=== PATIENT | male | born 1960 | race Caucasian/White ===

== ENCOUNTER 2017-06-08 07:27 | Inpatient (IN) | payer MEDICAID, OTHER ==
[2017-06-08] VITALS (15 sets, daily range): BP systolic 129–191; BP diastolic 71–116
[~2017-06-08] VITALS: Ht 188 cm; Wt 90.1 kg
[2017-06-08] MEDS ORDERED: nitroGLYCERIN 0.4mg SUBLingual tab SL PRN ×3 (07:45→10:25)
[2017-06-08] MEDS ORDERED: BUPIVAcaine 0.5% inj/PF 30 ml vial IJ ONE (08:05)
[2017-06-08 08:18] LABS: BASOPHILS % (AUTO) 0.2 % (0-1); EOSINOPHILS # (AUTO) 0.1 X10'3 (0-0.9); HEMATOCRIT 40.3 % (42.0-52.0); HEMOGLOBIN 13.7 g/dl (14.0-17.9); LYMPHOCYTES # (AUTO) 1.1 X10'3 (1.1-4.8); LYMPHOCYTES % (AUTO) 17.5 % (21-51); MEAN CORPUSCULAR HEMOGLOBIN 33.1 PG (27.0-31.0); MEAN CORPUSCULAR HGB CONC 34.1 % (33.0-36.5); MEAN CORPUSCULAR VOLUME 97.3 FL (78-98); MEAN PLATELET VOLUME 7.7 FL (7.4-10.4); MONOCYTES # (AUTO) 0.6 X10'3 (0-0.9); MONOCYTES % (AUTO) 8.9 % (2-12); NEUTROPHILS # (AUTO) 4.4 X10'3 (1.8-7.7); NEUTROPHILS % (AUTO) 71.4 % (42-75); PLATELET COUNT 310 X10'3 (140-440); RED BLOOD COUNT 4.14 X10'6 (4.70-6.10); RED CELL DISTRIBUTION WIDTH 13.2 % (11.5-14.5); WHITE BLOOD COUNT 6.2 X10'3 (4.5-11.0)
[2017-06-08 08:26] LABS: ALBUMIN 3.6 G/DL (3.4-5.0); ANION GAP 10 (8-16); BLOOD UREA NITROGEN 12 MG/DL (7-18); BUN/CREATININE RATIO 9.7 (5.4-32.0); CALCIUM 8.2 MG/DL (8.5-10.1); CHLORIDE 104 MMOL/L (99-107); CREATININE 1.24 MG/DL (0.60-1.10); GLUCOSE 109 MG/DL (70-104); POTASSIUM 3.9 MMOL/L (3.5-5.1); SODIUM 140 MMOL/L (135-145); TOTAL CARBON DIOXIDE 25.6 MMOL/L (24-32); eGFR 60 ML/MIN
[2017-06-08 08:36] LABS: PARTIAL THROMBOPLASTIN TIME 29 SECONDS (22-32); PROTHROMBIN TIME 10.8 SECONDS (9.0-12.0)
[2017-06-08 08:43] LABS: ALANINE AMINOTRANSFERASE 47 U/L (12-78); ALBUMIN/GLOBULIN RATIO 0.9 (1.1-1.5); ALKALINE PHOSPHATASE 54 IU/L (46-116); ASPARTATE AMINO TRANSFERASE 35 U/L (10-37); BILIRUBIN,TOTAL 0.4 MG/DL (0.1-1.0); TOTAL PROTEIN 7.7 G/DL (6.4-8.2)
[2017-06-08] MEDS ORDERED: potassium Cl 40MEQ/NS 500ml 500 ML IV PRN ×2 (10:20)
[2017-06-08] MEDS ORDERED: magnesium Cl slow-release 64mg tablet PO PRN (10:20)
[2017-06-08] MEDS ORDERED: magnesium 4gm in 100ml NS 100 ML IV PRN (10:20)
[2017-06-08] MEDS ORDERED: ondansetron/PF 4mg/2ml inj IV PRN (10:20)
[2017-06-08] MEDS ORDERED: HYDROcodone/acetaminophen 5mg/325mg tablet PO PRN (10:20)
[2017-06-08] MEDS ORDERED: acetaminophen 325mg tablet PO PRN (10:20)
[2017-06-08] MEDS ORDERED: magnesium hydroxide 30ml (MOM) UD suspension PO PRN (10:20)
[2017-06-08] MEDS ORDERED: potassium Cl 20 mEq SR tablet PO PRN ×2 (10:20)
[2017-06-08] MEDS ORDERED: magnesium 2GM in 50ml NS 50 ML IV PRN (10:20)
[2017-06-08] MEDS ORDERED: mag hydrox/Alum hydrox/simeth 30ml oral suspension PO PRN (10:20)
[2017-06-08] MEDS ORDERED: morphine 4 MG/ML inj SYRINge IV PRN (10:20)
[2017-06-08] MEDS ORDERED: regadenoson 0.4mg/5ml syringe IV ONE ×2 (10:25→13:56)
[2017-06-08] MEDS ORDERED: aminophylline 250mg/10ml inj. IV PRN (10:25)
[2017-06-08] MEDS ORDERED: metoprolol tartrate 1mg/ml inj IV PRN (10:25)
[2017-06-08] MEDS ORDERED: metoprolol tartrate 50mg tablet PO SCH (10:30)
[2017-06-08 10:34] LABS: APPEARANCE,SYNOVIAL FLUID CLEAR; COLOR,SYNOVIAL FLUID YELLOW; SYN RBC 108 /CU MM (0); SYN WBC 245 /CU MM (0-200)
[2017-06-08 10:35] LABS: SYNOVIAL FLUID CRYSTALS QT NO CRYSTALS SEEN
[2017-06-08] MEDS ORDERED: HYDR25TA4 PO (10:35)
[2017-06-08] MEDS ORDERED: LACT1CAP55 PO (10:35)
[2017-06-08] MEDS ORDERED: LISI40TA4 PO (10:35)
[2017-06-08] MEDS ORDERED: ATOR20TA PO (10:36)
[2017-06-08 10:42] LABS: GLUCOSE,SYNOVIAL FLUID 110 MG/DL; TOTAL PROTEIN,SYNOVIAL FLUID 4.9 GM/DL
[2017-06-08] MEDS: aspirin 325mg tablet PO SCH (10:45)
[2017-06-08] MEDS ORDERED: aminophylline inj. 10 ML IV ONE (13:56)
[2017-06-08] MEDS ORDERED: cloNIDine 0.1 mg tablet PO PRN ×2 (15:35→16:05)
[2017-06-08] MEDS: metoprolol tartrate 25mg tablet PO SCH (21:03)
[2017-06-09 03:00] VITALS: BP 131/87
[2017-06-09 06:27] LABS: BASOPHILS % (AUTO) 0.4 % (0-1); EOSINOPHILS # (AUTO) 0.2 X10'3 (0-0.9); EOSINOPHILS % (AUTO) 2.3 % (0-6); HEMATOCRIT 39.6 % (42.0-52.0); LYMPHOCYTES # (AUTO) 1.4 X10'3 (1.1-4.8); LYMPHOCYTES % (AUTO) 18.3 % (21-51); MEAN CORPUSCULAR HEMOGLOBIN 34.1 PG (27.0-31.0); MEAN CORPUSCULAR HGB CONC 35.4 % (33.0-36.5); MEAN CORPUSCULAR VOLUME 96.6 FL (78-98); MEAN PLATELET VOLUME 8.4 FL (7.4-10.4); MONOCYTES # (AUTO) 0.8 X10'3 (0-0.9); MONOCYTES % (AUTO) 10.6 % (2-12); NEUTROPHILS # (AUTO) 5.1 X10'3 (1.8-7.7); NEUTROPHILS % (AUTO) 68.4 % (42-75); PLATELET COUNT 283 X10'3 (140-440); RED CELL DISTRIBUTION WIDTH 13.4 % (11.5-14.5); WHITE BLOOD COUNT 7.5 X10'3 (4.5-11.0)
[2017-06-09 06:53] LABS: ALBUMIN 3.3 G/DL (3.4-5.0); ANION GAP 8 (8-16); BLOOD UREA NITROGEN 12 MG/DL (7-18); BUN/CREATININE RATIO 8.5 (5.4-32.0); CALCIUM 8.5 MG/DL (8.5-10.1); CHLORIDE 104 MMOL/L (99-107); CREATININE 1.41 MG/DL (0.60-1.10); GLUCOSE 101 MG/DL (70-104); MAGNESIUM 2.2 MG/DL (1.5-2.4); POTASSIUM 3.9 MMOL/L (3.5-5.1); SODIUM 139 MMOL/L (135-145); TOTAL CARBON DIOXIDE 27.5 MMOL/L (24-32); eGFR 51 ML/MIN
[2017-06-09 07:00] VITALS: BP 147/94
[2017-06-09] MEDS ORDERED: lisinopril 20mg tablet PO SCH (08:00)
[2017-06-09] MEDS: K and/or MAG REPLACEMENT MC SCH (08:00)
[2017-06-09] MEDS ORDERED: HYDROchlorothiazide 25mg tablet PO SCH (08:00)
[2017-06-09] MEDS: metoprolol tartrate 25mg tablet PO SCH ×2 (08:16→20:59)
[2017-06-09] MEDS: lactobacillus rhamnosus 10,000 MMU CELLS/CAPSULE PO SCH (08:17)
[2017-06-09] MEDS: aspirin 325mg tablet PO SCH (08:17)
[2017-06-09] MEDS: atorvastatin 20mg tablet PO SCH (08:17)
[2017-06-09 10:19] LABS: C DIFF ANTIGEN SEE COMMENTS (NEGATIVE); C DIFF SPECIMEN=DIARRHEA? ACCEPTABLE; C DIFFICILE TOXINS A&B NEGATIVE (Neg)
[2017-06-09 11:00] VITALS: BP 143/79
[2017-06-09 11:40] LABS: C DIFF TOXIN (LAMP) POSITIVE (NEG)
[2017-06-09 15:00] VITALS: BP 130/80
[2017-06-09] MEDS: normal saline 1000ml 1,000 ML IV SCH (17:58)
[2017-06-09] MEDS ORDERED: iohexol 300mg/ml 100ml inj. ONE (18:07)
[2017-06-09 19:00] VITALS: BP 129/86
[2017-06-09 23:00] VITALS: BP 135/85
[2017-06-10 03:00] VITALS: BP 113/64
[2017-06-10 05:08] LABS: BASOPHILS % (AUTO) 0.4 % (0-1); EOSINOPHILS # (AUTO) 0.3 X10'3 (0-0.9); EOSINOPHILS % (AUTO) 3.5 % (0-6); HEMATOCRIT 41.3 % (42.0-52.0); HEMOGLOBIN 14.1 g/dl (14.0-17.9); LYMPHOCYTES # (AUTO) 1.5 X10'3 (1.1-4.8); LYMPHOCYTES % (AUTO) 19.6 % (21-51); MEAN CORPUSCULAR HEMOGLOBIN 33.5 PG (27.0-31.0); MEAN CORPUSCULAR VOLUME 98.4 FL (78-98); MEAN PLATELET VOLUME 8.3 FL (7.4-10.4); MONOCYTES # (AUTO) 0.8 X10'3 (0-0.9); MONOCYTES % (AUTO) 10.1 % (2-12); NEUTROPHILS % (AUTO) 66.4 % (42-75); PLATELET COUNT 275 X10'3 (140-440); RED CELL DISTRIBUTION WIDTH 13.3 % (11.5-14.5); WHITE BLOOD COUNT 7.5 X10'3 (4.5-11.0)
[2017-06-10 05:24] LABS: ALBUMIN 3.2 G/DL (3.4-5.0); ANION GAP 8 (8-16); BLOOD UREA NITROGEN 16 MG/DL (7-18); BUN/CREATININE RATIO 9.9 (5.4-32.0); CALCIUM 8.5 MG/DL (8.5-10.1); CHLORIDE 101 MMOL/L (99-107); CREATININE 1.62 MG/DL (0.60-1.10); GLUCOSE 105 MG/DL (70-104); MAGNESIUM 2.2 MG/DL (1.5-2.4); POTASSIUM 3.6 MMOL/L (3.5-5.1); SODIUM 137 MMOL/L (135-145); TOTAL CARBON DIOXIDE 27.7 MMOL/L (24-32); eGFR 44 ML/MIN
[2017-06-10 06:56] VITALS: BP 96/60
[2017-06-10] MEDS: metoprolol tartrate 25mg tablet PO SCH (07:50)
[2017-06-10] MEDS: atorvastatin 20mg tablet PO SCH (07:50)
[2017-06-10] MEDS: lactobacillus rhamnosus 10,000 MMU CELLS/CAPSULE PO SCH (07:50)
[2017-06-10] MEDS: aspirin 325mg tablet PO SCH (07:50)
[2017-06-10] MEDS: K and/or MAG REPLACEMENT MC SCH (08:00)
[2017-06-10 11:00] VITALS: BP 126/76
[2017-06-10 11:51] LABS: CLARITY,URINE CLEAR (Clear); COLOR,URINE YELLOW (Yellow); GLUCOSE, URINE NEGATIVE (Neg); KETONES,URINE NEGATIVE (Neg); LEUKOCYTE ESTERASE ,URINE NEGATIVE (Neg); NITRITES, URINE NEGATIVE (Neg); OCCULT BLOOD,URINE NEGATIVE (Neg); PH,URINE 5.5 (4.8-8.0); PROTEIN,URINE NEGATIVE (Neg); UA COLLECTION TYPE NON-SPECIFIED; UROBILINOGEN,URINE 0.2 E.U/dL (0.2-1.0)
[2017-06-10] MEDS: normal saline 1000ml 1,000 ML IV SCH (13:05)
[2017-06-10] MEDS ORDERED: VANC125C4 PO (13:12)
[2017-06-10] MEDS ORDERED: METO25TA6 PO (13:12)
[2017-06-10] MEDS ORDERED: VANC5VIA PO (13:36)
[2017-06-10] MEDS ORDERED: vancomycin 125mg/5ml ORAL solution 5ml UD bottle PO SCH (14:00)
== END 2017-06-10 15:55 | disposition home or self-care (01) | DRG 248 ==
LOC: ER 07:28 → ED HOLD 10:17 → EDBEDREQ 13:55 → PCU 3S 15:27
PROVIDERS: ADMIT Internal Medicine; ATTEND Internal Medicine
PROC: 4A02XM4 Measurement of Cardiac Total Activity, External Approach (ICD-10-PCS; principal; 2017-06-08)
PROC: 3E073KZ Introduction of Other Diagnostic Substance into Coronary Artery, Percutaneous Approach (ICD-10-PCS; 2017-06-08)
PROC: 0S9D3ZX Drainage of Left Knee Joint, Percutaneous Approach, Diagnostic (ICD-10-PCS; 2017-06-08)
PROC: BW2F1ZZ Computerized Tomography (CT Scan) of Neck using Low Osmolar Contrast (ICD-10-PCS; 2017-06-09)
DX: A04.72 Enterocolitis due to Clostridium difficile, not specified as recurrent (principal); G62.9 Polyneuropathy, unspecified; I12.9 Hypertensive chronic kidney disease with stage 1 through stage 4 chronic kidney disease, or unspecified chronic kidney disease; N18.9 Chronic kidney disease, unspecified; M25.462 Effusion, left knee; E78.00 Pure hypercholesterolemia, unspecified; E78.5 Hyperlipidemia, unspecified; R22.1 Localized swelling, mass and lump, neck; Z88.0 Allergy status to penicillin; Z88.1 Allergy status to other antibiotic agents; Z79.899 Other long term (current) drug therapy; Z86.19 Personal history of other infectious and parasitic diseases; Z82.49 Family history of ischemic heart disease and other diseases of the circulatory system
CPT/HCPCS: 20610; 29505; 36415; 70491; 71045; 78452; 80048; 80053; 81003; 82945; 83735; 83880; 84157; 84484; 85025; 85610; 85730; 87015; 87070; 87324; 87449; 87493; 89051; 89060; 93005; 93017; 93306; 93975; 99285; A6449; A9500; J0280; J3490; J7030; Q9967